=== PATIENT | female | born 1950 | race Caucasian/White ===

== ENCOUNTER 2017-06-07 13:24 | Emergency (ER) | payer MEDICARE, BC ==
[~2017-06-07] VITALS: Ht 162.5 cm; Wt 86.2 kg
[2017-06-07] MEDS ORDERED: ZESTRIL40 MG PO (13:32)
[2017-06-07] MEDS ORDERED: ESTRACE1 M1 PO (13:32)
[2017-06-07] MEDS ORDERED: NATURE'S BLEND F1 MG PO (13:32)
[2017-06-07] MEDS ORDERED: POTASSIUM CHLO10 MEQ PO (13:32)
[2017-06-07] MEDS ORDERED: NEURONTIN300 MG PO (13:33)
[2017-06-07] MEDS ORDERED: LEVOTHYROXINE50 MCG PO (13:33)
[2017-06-07 14:52] LABS: BASO % 0.2 % (0.0-1.0); EOS # 0.2 10*3/uL (0.0-0.4); EOS % 4.3 % (1.0-4.0); HEMATOCRIT 40.6 % (37.0-47.0); HEMOGLOBIN 13.8 g/dl (12.0-16.0); LYMPH # 0.3 10*3/uL (1.3-4.4); LYMPH % 5.4 % (27.0-41.0); MEAN CELL VOLUME 93.1 fl (81.0-99.0); MEAN CORPUSCULAR HGB 31.7 pg (27.0-31.0); MEAN PLATELET VOLUME 9.1 fl (9.6-12.3); MONO # 0.5 10*3/uL (0.1-1.0); MONO % 9.3 % (3.0-9.0); NEUT # 4.3 10*3/uL (2.3-7.9); NEUT % 80.6 % (47.0-73.0); PLATELET COUNT AUTOMATED 247 10*3/uL (130-400); RED BLOOD COUNT 4.36 10*6/uL (4.10-5.10); RED CELL DISTRI WIDTH 13.1 % (0-14.5); WHITE BLOOD COUNT 5.4 10*3/uL (4.8-10.8)
[2017-06-07 15:09] LABS: ALBUMIN 3.5 gm/dl (3.1-4.5); ALKALINE PHOSPHATASE 50 U/L (45-117); BUN 9 mg/dl (7-24); CHLORIDE 108 mmol/L (98-107); CREATININE 0.69 mg/dL (0.55-1.02); POTASSIUM 3.5 mmol/L (3.5-5.1); SGOT/AST 27 IU/L (3-35); SGPT/ALT 27 U/L (12-78); SODIUM 142 mmol/L (136-145); TOTAL PROTEIN 7.1 gm/dL (6.4-8.2)
[2017-06-07 15:10] LABS: TROPONIN I < 0.015 ng/ml (<0.045)
[2017-06-07] MEDS ORDERED: PREDNISONE20 M1 PO (16:19)
[2017-06-07] MEDS ORDERED: VIBRAMYCIN100 MG PO (16:19)
[2017-06-07] MEDS ORDERED: ROBITUSSIN DM 105 ML PO (16:19)
== END 2017-06-07 16:45 | disposition home or self-care (01) ==
LOC: ED 13:24
PROVIDERS: Nurse Practitioner Family
DX: J20.9 Acute bronchitis, unspecified (principal); Z88.1 Allergy status to other antibiotic agents; Z79.899 Other long term (current) drug therapy

== ENCOUNTER → 2023-09-26 | Outpatient (CLI) | payer MEDICARE ==
[~2023-09-26] MED LIST: ESTRACE1 M1 PO; LEVOTHYROXINE50 MCG PO; NATURE'S BLEND F1 MG PO; NEURONTIN300 MG PO; POTASSIUM CHLO10 MEQ PO; PREDNISONE20 M1 PO; ROBITUSSIN DM 105 ML PO; VIBRAMYCIN100 MG PO; ZESTRIL40 MG PO
== END | disposition home or self-care (01) ==
LOC: LAB 18:17
PROVIDERS: ATTEND Nurse Practitioner Family
DX: R30.0 Dysuria (principal)

== ENCOUNTER → 2025-01-02 | Outpatient (CLI) | payer MEDICARE, BC ==
[2025-01-02 12:54] LABS: BASO # 0.0 10*3/uL (0.0-0.1); BASO % 0.5 % (0.0-1.0); EOS # 0.5 10*3/uL (0.0-0.4); EOS % 8.1 % (1.0-4.0); MEAN CELL VOLUME 97.7 fl (81.0-99.0); MEAN CORPUSCULAR HGB 31.7 pg (27.0-31.0); MEAN PLATELET VOLUME 9.5 fl (9.6-12.3); MONO # 0.7 10*3/uL (0.1-1.0); MONO % 11.1 % (3.0-9.0); NEUT # 3.5 10*3/uL (2.3-7.9); NEUT % 54.6 % (47.0-73.0); NUCLEATED RED BLOOD CELL 0.0 % (0.0-0.0); NUCLEATED RED BLOOD CELL 0.0 10*3/uL (0.0-0.0); PLATELET COUNT AUTOMATED 256 10*3/uL (130-400); RED CELL DISTRI WIDTH 12.6 % (0-14.5)
[2025-01-02 13:14] LABS: BUN 9 mg/dl (9-23)
== END | disposition home or self-care (01) ==
LOC: LAB 11:36
PROVIDERS: ATTEND Nurse Practitioner Family
DX: R06.00 Dyspnea, unspecified (principal)